=== PATIENT | female | born 2000 | race Caucasian/White ===

== ENCOUNTER 2023-10-02 21:16 | Emergency (ER) | payer SELFPAY ==
[~2023-10-02] VITALS: Ht 170.2 cm; Wt 103.0 kg
[2023-10-02 21:51] VITALS: O2SAT 94
[2023-10-02 23:07] LABS: BASOPHILS % 0.4 % (0.0-2.0); EOSINOPHILS % 0.6 % (0.0-5.0); HEMATOCRIT. 41.8 % (36.0-48.0); MEAN CORPUSCULAR HEMOGLOBIN 29.5 pg (28.0-32.0); MEAN CORPUSCULAR HGB CONC 33.4 g/dL (31.0-37.0); MEAN CORPUSCULAR VOLUME 88.3 fL (81.0-99.0); MEAN PLATELET VOLUME 8.8 fl (7.4-10.4); MONOCYTES % 6.9 % (2.0-8.0); NEUTROPHILS % 76.1 % (40.0-76.0); PLATELET 223 x1000/uL (130-400); RED BLOOD CELL COUNT 4.73 mill/uL (4.2-5.4); RED CELL DISTRIBUTION WIDTH 12.8 % (11.6-14.6); WHITE BLOOD COUNT 11.9 x1000/uL (4.5-11.0)
[2023-10-02 23:10] LABS: CHLORIDE 101 mEq/L (98-107); INDEX HEMOLYSI 1 (1-3); INDEX ICTERIC 2 (1-4); INDEX LIPEMIC 1 (1-3); POTASSIUM 3.6 mEq/L (3.5-5.1); SODIUM 135 mEq/L (136-145)
[2023-10-02 23:18] LABS: ALANINE AMINOTRANSFERASE 694 IU/L (13-61); ALBUMIN 3.8 g/dL (3.4-5.0); ASPARTATE AMINOTRANSFERASE 462 IU/L (15-37); BILIRUBIN TOTAL 4.8 mg/dL (0.1-1.0); CALCIUM 9.3 mg/dL (8.5-10.1); CARBON DIOXIDE 30 mEq/L (21-32); CREATININE 0.6 mg/dL (0.6-1.3); GLUCOSE 109 mg/dL (70-105); PROTEIN TOTAL 7.9 g/dL (6.0-8.3); UREA NITROGEN BLOOD 6 mg/dL (7-21)
[2023-10-03] MEDS ORDERED: DOCU-138 MT (01:37)
[2023-10-03 01:43] VITALS: BP 130/75; PULSE 67; RESP 16; TEMP 97.9
[2023-10-03] MEDS ORDERED: DOCUSATE SODIUM 100MG CAPSULE PO ONE (01:45)
== END 2023-10-03 01:42 | disposition home or self-care (01) ==
LOC: ER 21:16
DX: K59.00 Constipation, unspecified (principal); R74.8 Abnormal levels of other serum enzymes; R11.2 Nausea with vomiting, unspecified; Z88.2 Allergy status to sulfonamides; Z98.890 Other specified postprocedural states
CPT/HCPCS: 36415; 80053; 81025; 85025; 99283